=== PATIENT | male | born 1990 | race African-American/Black ===

== ENCOUNTER 2020-12-11 14:20 | Inpatient (IN) | payer OTHER ==
[2020-12-11 15:39] VITALS: BMI 23.2
[2020-12-11] MEDS ORDERED: chlordiazePOXIDE HCL 25 MG CAPSULE PO PRN (17:49)
[2020-12-11] MEDS ORDERED: MAGNESIUM HYDROX 2400MG/30ML ORAL SUSPENSION 30 ML CUP PO PRN (17:49)
[2020-12-11] MEDS ORDERED: BISMUTH SUBSALICYLATE 524 MG/30 ML UD PO PRN (17:49)
[2020-12-11] MEDS ORDERED: METHOCARBAMOL 500 MG TABLET PO PRN (17:49)
[2020-12-11] MEDS ORDERED: ONDANSETRON *ODT* 4 MG TABLET SL PRN (17:49)
[2020-12-11] MEDS ORDERED: METHADONE HCL 10 MG TABLET (FOR DETOX USE ONLY) PO ONE (17:49)
[2020-12-11] MEDS ORDERED: NICOTINE POLACRILEX 2 MG GUM BUC PRN (17:49)
[2020-12-11] MEDS ORDERED: hydrOXYzine PAMOATE 25 MG CAPSULE (FP) PO PRN (17:49)
[2020-12-11] MEDS ORDERED: ACETAMINOPHEN 325 MG TABLET (FP) PO PRN ×2 (17:49)
[2020-12-11] MEDS ORDERED: IBUPROFEN 400 MG TABLET (FP) PO PRN (17:49)
[2020-12-11] MEDS ORDERED: cloNIDine HCL 0.1 MG TABLET PO PRN (17:49)
[2020-12-11] MEDS ORDERED: MENTHOL/PHENOL 1 EACH UD MM PRN (17:49)
[2020-12-11] MEDS ORDERED: MAG HYDROX/AL HYDROX/SIMETH 30 ML UNIT-DOSE CUP PO PRN (17:49)
[2020-12-11] MEDS ORDERED: MAGNESIUM CITRATE 300 ML BOTTLE PO PRN (17:49)
[2020-12-11] MEDS: chlordiazePOXIDE HCL 25 MG CAPSULE PO SCH ×2 (20:12→22:40)
[2020-12-11] MEDS: THIAMINE HCL 100 MG TABLET (FP) PO SCH (22:39)
[2020-12-11] MEDS: MELATONIN 5 MG TABLETS PO SCH (22:41)
[2020-12-12] MEDS: chlordiazePOXIDE HCL 25 MG CAPSULE PO SCH ×4 (05:55→23:53)
[2020-12-12] MEDS ORDERED: METHADONE (DETOX) 20 MG, METHADONE (DETOX) 5 MG PO ONE (10:00)
[2020-12-12] MEDS ORDERED: METHADONE HCL 5 MG TABLET (FOR DETOX USE ONLY) ONE (10:02)
[2020-12-12] MEDS ORDERED: METHADONE HCL 10 MG TABLET (FOR DETOX USE ONLY) ONE (10:03)
[2020-12-12] MEDS: PRENATAL VITAMINS W/ FOLIC ACID TABLET (FP) PO SCH (10:29)
[2020-12-12] MEDS: NICOTINE 14 MG/24 HOURS TOPICAL PATCH TD SCH (10:33)
[2020-12-12 10:47] LABS: HEMATOCRIT 42.8 % (35.4-49); MCH 26.1 pg (25.7-33.7); MCHC 32.8 g/dl (32.0-35.9); MEAN CELL VOLUME 79.7 fl (80-96); MEAN PLT VOLUME 8.1 fl (7.5-11.1); PLATELET COUNT 212 K/MM3 (134-434); RBC 5.37 M/mm3 (4.00-5.60); RDW 12.6 % (11.9-15.9); WHITE BLOOD COUNT 6.7 K/mm3 (4.0-10.0)
[2020-12-12 10:57] LABS: POTASSIUM 4.3 mmol/L (3.5-5.1)
[2020-12-12 11:07] LABS: ALBUMIN 3.4 g/dl (3.4-5.0); BLOOD UREA NITROGEN 13.1 mg/dL (7-18)
[2020-12-12 11:10] LABS: CREATININE 1.3 mg/dL (0.55-1.3)
[2020-12-12 11:12] LABS: BILIRUBIN,TOTAL 0.8 mg/dL (0.2-1); TOT PROT 8.1 g/dl (6.4-8.2)
[2020-12-12 11:14] LABS: CALCIUM 9.4 mg/dL (8.5-10.1)
[2020-12-12] MEDS: THIAMINE HCL 100 MG TABLET (FP) PO SCH (23:53)
[2020-12-12] MEDS: MELATONIN 5 MG TABLETS PO SCH (23:53)
[2020-12-13] MEDS: chlordiazePOXIDE HCL 25 MG CAPSULE PO SCH ×5 (05:30→22:08)
[2020-12-13] MEDS ORDERED: METHADONE HCL 10 MG TABLET (FOR DETOX USE ONLY) PO ONE (10:00)
[2020-12-13] MEDS: PRENATAL VITAMINS W/ FOLIC ACID TABLET (FP) PO SCH (10:08)
[2020-12-13] MEDS: NICOTINE 14 MG/24 HOURS TOPICAL PATCH TD SCH (10:10)
[2020-12-13] MEDS: THIAMINE HCL 100 MG TABLET (FP) PO SCH (22:07)
[2020-12-13] MEDS: MELATONIN 5 MG TABLETS PO SCH (22:07)
[2020-12-14] MEDS ORDERED: chlordiazePOXIDE HCL 10 MG CAPSULE PO PRN
[2020-12-14] MEDS: chlordiazePOXIDE HCL 10 MG CAPSULE PO SCH ×4 (06:18→22:20)
[2020-12-14] MEDS ORDERED: METHADONE HCL 10 MG TABLET (FOR DETOX USE ONLY) ONE (08:49)
[2020-12-14] MEDS ORDERED: METHADONE HCL 5 MG TABLET (FOR DETOX USE ONLY) ONE (08:49)
[2020-12-14] MEDS ORDERED: METHADONE (DETOX) 10 MG, METHADONE (DETOX) 5 MG PO ONE (10:00)
[2020-12-14] MEDS: NICOTINE 14 MG/24 HOURS TOPICAL PATCH TD SCH (10:18)
[2020-12-14] MEDS: PRENATAL VITAMINS W/ FOLIC ACID TABLET (FP) PO SCH (10:19)
[2020-12-14 21:58] VITALS: PULSE 69
[2020-12-14] MEDS: THIAMINE HCL 100 MG TABLET (FP) PO SCH (22:20)
[2020-12-14] MEDS: MELATONIN 5 MG TABLETS PO SCH (22:20)
[2020-12-15] MEDS ORDERED: chlordiazePOXIDE HCL 10 MG CAPSULE PO SCH (05:00)
[2020-12-15 07:19] VITALS: BP 107/70; TEMP 97.1
[2020-12-15] MEDS ORDERED: METHADONE HCL 10 MG TABLET (FOR DETOX USE ONLY) PO ONE (10:00)
[2020-12-16] MEDS ORDERED: chlordiazePOXIDE HCL 10 MG CAPSULE PO ONE (05:00)
[2020-12-16] MEDS ORDERED: METHADONE HCL 5 MG TABLET (FOR DETOX USE ONLY) PO ONE (06:00)
== END 2020-12-15 09:30 | disposition home or self-care (01) | DRG 773 ==
LOC: YASAS 14:20 → Y6N 19:11
PROVIDERS: ADMIT Allergy & Immunology; ATTEND Allergy & Immunology
PROC: HZ2ZZZZ Detoxification Services for Substance Abuse Treatment (ICD-10-PCS; principal; 2020-12-11)
DX: F11.23 Opioid dependence with withdrawal (principal); F10.230 Alcohol dependence with withdrawal, uncomplicated; F17.210 Nicotine dependence, cigarettes, uncomplicated; Z56.0 Unemployment, unspecified
CPT/HCPCS: 36415; 80053; 85027; 86780; 93005; 93010; C9803; J0735; U0003

== ENCOUNTER 2021-05-09 18:10 | Inpatient (IN) | payer OTHER ==
[2021-05-09 18:46] VITALS: BMI 22.4
[2021-05-09] MEDS ORDERED: MENTHOL/PHENOL 1 EACH UD MM PRN (19:24)
[2021-05-09] MEDS ORDERED: ONDANSETRON *ODT* 4 MG TABLET SL PRN (19:24)
[2021-05-09] MEDS ORDERED: MAGNESIUM CITRATE 300 ML BOTTLE PO PRN (19:24)
[2021-05-09] MEDS ORDERED: hydrOXYzine PAMOATE 25 MG CAPSULE (FP) PO PRN (19:24)
[2021-05-09] MEDS ORDERED: METHOCARBAMOL 500 MG TABLET PO PRN (19:24)
[2021-05-09] MEDS ORDERED: BISMUTH SUBSALICYLATE 524 MG/30 ML PO PRN (19:24)
[2021-05-09] MEDS ORDERED: MAGNESIUM HYDROX 2400MG/30ML ORAL SUSPENSION 30 ML CUP PO PRN (19:24)
[2021-05-09] MEDS ORDERED: MAG HYDROX/AL HYDROX/SIMETH 30 ML UNIT-DOSE CUP PO PRN (19:24)
[2021-05-09] MEDS ORDERED: IBUPROFEN 400 MG TABLET (FP) PO PRN (19:24)
[2021-05-09] MEDS ORDERED: ACETAMINOPHEN 325 MG TABLET (FP) PO PRN ×2 (19:24)
[2021-05-09] MEDS ORDERED: cloNIDine HCL 0.1 MG TABLET PO PRN (19:28)
[2021-05-09] MEDS ORDERED: methaDONE HCL 10 MG TABLET (FOR DETOX USE ONLY) PO ONE (23:00)
[2021-05-09] MEDS: BACITRACIN 0.9 GM PACKET TP SCH (23:48)
[2021-05-09] MEDS: MELATONIN 5 MG TABLETS PO SCH (23:50)
[2021-05-09] MEDS: THIAMINE HCL 100 MG TABLET (FP) PO SCH (23:50)
[2021-05-10 10:08] LABS: HEMATOCRIT 39.2 % (35.4-49); HEMOGLOBIN 12.9 GM/dL (11.7-16.9); MCH 25.7 pg (25.7-33.7); MCHC 32.9 g/dl (32.0-35.9); MEAN CELL VOLUME 78.3 fl (80-96); MEAN PLT VOLUME 8.3 fl (7.5-11.1); PLATELET COUNT 201 10^3/uL (134-434); RDW 13.8 % (11.9-15.9); WHITE BLOOD COUNT 5.6 K/mm3 (4.0-10.0)
[2021-05-10 10:23] LABS: CALCIUM 8.3 mg/dL (8.5-10.1)
[2021-05-10 10:24] LABS: ALBUMIN 2.7 g/dl (3.4-5.0); BLOOD UREA NITROGEN 11.4 mg/dL (7-18)
[2021-05-10] MEDS ORDERED: methaDONE HCL 10 MG TABLET (FOR DETOX USE ONLY) ONE (10:25)
[2021-05-10 10:27] LABS: CREATININE 1.1 mg/dL (0.55-1.3)
[2021-05-10] MEDS: BACITRACIN 0.9 GM PACKET TP SCH ×2 (10:27→23:39)
[2021-05-10] MEDS: PRENATAL VITAMINS W/ FOLIC ACID TABLET (FP) PO SCH (10:27)
[2021-05-10 10:28] LABS: BILIRUBIN,TOTAL 0.5 mg/dL (0.2-1); TOT PROT 6.4 g/dl (6.4-8.2)
[2021-05-10] MEDS ORDERED: NALOXONE (NARCAN) HCL 4 MG/0.1 ML SPRAY NS SCH (11:30)
[2021-05-10] MEDS ORDERED: NALOXONE (NARCAN) HCL 4 MG/0.1 ML SPRAY NS PRN (12:20)
[2021-05-10] MEDS: MELATONIN 5 MG TABLETS PO SCH (23:39)
[2021-05-10] MEDS: THIAMINE HCL 100 MG TABLET (FP) PO SCH (23:39)
[2021-05-11 09:45] VITALS: BP 129/79; PULSE 71; TEMP 96.9
[2021-05-11] MEDS ORDERED: methaDONE HCL 10 MG TABLET (FOR DETOX USE ONLY) PO ONE (10:00)
[2021-05-11] MEDS: PRENATAL VITAMINS W/ FOLIC ACID TABLET (FP) PO SCH (11:59)
[2021-05-11] MEDS: BACITRACIN 0.9 GM PACKET TP SCH (11:59)
[2021-05-13] MEDS ORDERED: methaDONE HCL 10 MG TABLET (FOR DETOX USE ONLY) PO ONE (10:00)
== END 2021-05-11 10:03 | disposition left against medical advice (07) | DRG 770 ==
LOC: YASAS 18:10 → Y3N 19:24
PROVIDERS: ADMIT Allergy & Immunology; ATTEND Allergy & Immunology
PROC: HZ2ZZZZ Detoxification Services for Substance Abuse Treatment (ICD-10-PCS; principal; 2021-05-09)
DX: F11.23 Opioid dependence with withdrawal (principal); F17.210 Nicotine dependence, cigarettes, uncomplicated
CPT/HCPCS: 36415; 80053; 85027; 86780; C9803; U0003; U0005

== ENCOUNTER 2021-08-18 15:37 | Inpatient (IN) | payer OTHER ==
[2021-08-18 18:29] VITALS: BMI 22.6
[2021-08-18] MEDS ORDERED: MAGNESIUM HYDROX 2400MG/30ML ORAL SUSPENSION 30 ML CUP PO PRN (19:50)
[2021-08-18] MEDS ORDERED: P-EPHED 60MG/TRIPROLIDI 2.5MG TABLET PO PRN (19:50)
[2021-08-18] MEDS ORDERED: MAGNESIUM CITRATE 300 ML BOTTLE PO PRN (19:50)
[2021-08-18] MEDS ORDERED: NICOTINE POLACRILEX 2 MG GUM BC PRN (19:50)
[2021-08-18] MEDS ORDERED: ACETAMINOPHEN 325 MG TABLET (FP) PO PRN (19:50)
[2021-08-18] MEDS ORDERED: guaiFENesin 200 MG/10 ML 10 ML UNIT-DOSE CUPS PO PRN (19:50)
[2021-08-18] MEDS ORDERED: LOPERAMIDE HCL 2 MG CAPSULE PO PRN (19:50)
[2021-08-18] MEDS ORDERED: MAG HYDROX/AL HYDROX/SIMETH 30 ML UNIT-DOSE CUP PO PRN (19:50)
[2021-08-18] MEDS ORDERED: IBUPROFEN 400 MG TABLET (FP) PO PRN (19:50)
[2021-08-18] MEDS: THIAMINE HCL 100 MG TABLET (FP) PO SCH (23:08)
[2021-08-18] MEDS: MELATONIN 5 MG TABLETS PO SCH (23:08)
[2021-08-19] MEDS ORDERED: methaDONE HCL 10 MG TABLET ONE (05:54)
[2021-08-19] MEDS ORDERED: methaDONE HCL 40 MG DISPERSABLE TABLET ONE (05:54)
[2021-08-19] MEDS ORDERED: methaDONE HCL 10 MG TABLET PO ONE (06:00)
[2021-08-19] MEDS ORDERED: methaDONE 40 MG, methaDONE 20 MG PO ONE (06:00)
[2021-08-19] MEDS: NICOTINE 14 MG/24 HOURS TOPICAL PATCH TD SCH (10:32)
[2021-08-19] MEDS: PRENATAL VITAMINS W/ FOLIC ACID TABLET (FP) PO SCH (10:32)
[2021-08-19 12:34] LABS: HEMOGLOBIN 12.2 GM/dL (11.7-16.9); MCH 25.4 pg (25.7-33.7); MEAN CELL VOLUME 79.4 fl (80-96); MEAN PLT VOLUME 7.6 fl (7.5-11.1); PLATELET COUNT 243 10^3/uL (134-434); RBC 4.78 M/mm3 (4.00-5.60); WHITE BLOOD COUNT 4.7 K/mm3 (4.0-10.0)
[2021-08-19 12:46] LABS: ALBUMIN 2.6 g/dl (3.4-5.0); BLOOD UREA NITROGEN 11.4 mg/dL (7-18)
[2021-08-19 12:51] LABS: TOT PROT 7.1 g/dl (6.4-8.2)
[2021-08-19 12:52] LABS: BILIRUBIN,TOTAL 0.2 mg/dL (0.2-1)
[2021-08-19] MEDS: MELATONIN 5 MG TABLETS PO SCH (21:40)
[2021-08-19] MEDS: THIAMINE HCL 100 MG TABLET (FP) PO SCH (21:40)
[2021-08-20] MEDS ORDERED: methaDONE HCL 10 MG TABLET ONE (05:53)
[2021-08-20] MEDS ORDERED: methaDONE HCL 40 MG DISPERSABLE TABLET ONE (05:53)
[2021-08-20] MEDS ORDERED: methaDONE HCL 10 MG TABLET PO SCH (06:00)
[2021-08-20] MEDS: methaDONE 40 MG, methaDONE 20 MG PO SCH (06:35)
[2021-08-20] MEDS: NICOTINE 10 MG CARTRIDGE (INHALER) IH PRN ×2 (07:26→17:27)
[2021-08-20] MEDS: PRENATAL VITAMINS W/ FOLIC ACID TABLET (FP) PO SCH (10:24)
[2021-08-20] MEDS: NICOTINE 14 MG/24 HOURS TOPICAL PATCH TD SCH (10:24)
[2021-08-20 19:52] LABS: PH,URINE 7.5 (5.0-8.0); URINE APPEARANCE CLOUDY; URINE BILIRUBIN NEGATIVE (NEGATIVE); URINE COLOR YELLOW; URINE GLUCOSE (UA) NEGATIVE (NEGATIVE); URINE KETONE NEGATIVE (NEGATIVE); URINE LEUK ESTERASE NEGATIVE (NEGATIVE); URINE NITRITE NEGATIVE (NEGATIVE); URINE PROTEIN NEGATIVE (NEGATIVE)
[2021-08-20] MEDS: THIAMINE HCL 100 MG TABLET (FP) PO SCH (21:35)
[2021-08-20] MEDS: MELATONIN 5 MG TABLETS PO SCH (21:35)
[2021-08-21] MEDS ORDERED: methaDONE HCL 10 MG TABLET ONE (03:12)
[2021-08-21] MEDS ORDERED: methaDONE HCL 40 MG DISPERSABLE TABLET ONE (03:12)
[2021-08-21] MEDS: methaDONE 40 MG, methaDONE 20 MG PO SCH (06:14)
[2021-08-21] MEDS: NICOTINE 10 MG CARTRIDGE (INHALER) IH PRN ×2 (06:49→18:11)
[2021-08-21] MEDS: PRENATAL VITAMINS W/ FOLIC ACID TABLET (FP) PO SCH (10:55)
[2021-08-21] MEDS: NICOTINE 14 MG/24 HOURS TOPICAL PATCH TD SCH (10:55)
[2021-08-21] MEDS: THIAMINE HCL 100 MG TABLET (FP) PO SCH (22:13)
[2021-08-21] MEDS: MELATONIN 5 MG TABLETS PO SCH (22:13)
[2021-08-22] MEDS ORDERED: methaDONE HCL 40 MG DISPERSABLE TABLET ONE (02:51)
[2021-08-22] MEDS ORDERED: methaDONE HCL 10 MG TABLET ONE (02:52)
[2021-08-22] MEDS: methaDONE 40 MG, methaDONE 20 MG PO SCH (06:34)
[2021-08-22] MEDS: NICOTINE 10 MG CARTRIDGE (INHALER) IH PRN ×2 (06:36→19:40)
[2021-08-22] MEDS: PRENATAL VITAMINS W/ FOLIC ACID TABLET (FP) PO SCH (11:27)
[2021-08-22] MEDS: NICOTINE 14 MG/24 HOURS TOPICAL PATCH TD SCH (11:27)
[2021-08-22] MEDS: MELATONIN 5 MG TABLETS PO SCH (22:51)
[2021-08-22] MEDS: THIAMINE HCL 100 MG TABLET (FP) PO SCH (22:51)
[2021-08-23] MEDS ORDERED: methaDONE HCL 40 MG DISPERSABLE TABLET ONE (04:06)
[2021-08-23] MEDS ORDERED: methaDONE HCL 10 MG TABLET ONE (04:07)
[2021-08-23] MEDS: methaDONE 40 MG, methaDONE 20 MG PO SCH (07:19)
[2021-08-23] MEDS: NICOTINE 10 MG CARTRIDGE (INHALER) IH PRN ×2 (07:21→18:36)
[2021-08-23] MEDS: PRENATAL VITAMINS W/ FOLIC ACID TABLET (FP) PO SCH (11:09)
[2021-08-23] MEDS: NICOTINE 14 MG/24 HOURS TOPICAL PATCH TD SCH (11:09)
[2021-08-23] MEDS: MELATONIN 5 MG TABLETS PO SCH (21:32)
[2021-08-23] MEDS: THIAMINE HCL 100 MG TABLET (FP) PO SCH (21:32)
[2021-08-24] MEDS ORDERED: methaDONE HCL 40 MG DISPERSABLE TABLET ONE (03:18)
[2021-08-24] MEDS ORDERED: methaDONE HCL 10 MG TABLET ONE (03:18)
[2021-08-24] MEDS: methaDONE 40 MG, methaDONE 20 MG PO SCH (05:52)
[2021-08-24] MEDS: PRENATAL VITAMINS W/ FOLIC ACID TABLET (FP) PO SCH (09:58)
[2021-08-24] MEDS: NICOTINE 10 MG CARTRIDGE (INHALER) IH PRN (09:58)
[2021-08-24] MEDS: NICOTINE 14 MG/24 HOURS TOPICAL PATCH TD SCH (10:37)
[2021-08-24] MEDS: BACITRACIN 0.9 GM PACKET TP SCH ×2 (11:48→21:51)
[2021-08-24] MEDS: MELATONIN 5 MG TABLETS PO SCH (21:51)
[2021-08-24] MEDS: THIAMINE HCL 100 MG TABLET (FP) PO SCH (21:51)
[2021-08-25] MEDS ORDERED: methaDONE HCL 40 MG DISPERSABLE TABLET ONE (02:58)
[2021-08-25] MEDS ORDERED: methaDONE HCL 10 MG TABLET ONE (02:58)
[2021-08-25] MEDS: methaDONE 40 MG, methaDONE 20 MG PO SCH (06:33)
[2021-08-25] MEDS: NICOTINE 10 MG CARTRIDGE (INHALER) IH PRN (08:40)
[2021-08-25] MEDS: NICOTINE 14 MG/24 HOURS TOPICAL PATCH TD SCH (11:07)
[2021-08-25] MEDS: PRENATAL VITAMINS W/ FOLIC ACID TABLET (FP) PO SCH (11:07)
[2021-08-25] MEDS: BACITRACIN 0.9 GM PACKET TP SCH ×2 (11:07→22:48)
[2021-08-25] MEDS: THIAMINE HCL 100 MG TABLET (FP) PO SCH (22:48)
[2021-08-25] MEDS: MELATONIN 5 MG TABLETS PO SCH (22:48)
[2021-08-26] MEDS ORDERED: methaDONE HCL 10 MG TABLET ONE (03:48)
[2021-08-26] MEDS ORDERED: methaDONE HCL 40 MG DISPERSABLE TABLET ONE (03:48)
[2021-08-26] MEDS: methaDONE 40 MG, methaDONE 20 MG PO SCH (06:29)
[2021-08-26] MEDS: NICOTINE 10 MG CARTRIDGE (INHALER) IH PRN ×2 (07:04→21:20)
[2021-08-26] MEDS: PRENATAL VITAMINS W/ FOLIC ACID TABLET (FP) PO SCH (10:28)
[2021-08-26] MEDS: NICOTINE 14 MG/24 HOURS TOPICAL PATCH TD SCH (10:28)
[2021-08-26] MEDS: BACITRACIN 0.9 GM PACKET TP SCH ×2 (10:28→21:21)
[2021-08-26] MEDS: MELATONIN 5 MG TABLETS PO SCH (21:20)
[2021-08-26] MEDS: THIAMINE HCL 100 MG TABLET (FP) PO SCH (21:21)
[2021-08-27] MEDS ORDERED: methaDONE HCL 40 MG DISPERSABLE TABLET ONE (03:20)
[2021-08-27] MEDS ORDERED: methaDONE HCL 10 MG TABLET ONE (03:21)
[2021-08-27] MEDS ORDERED: methaDONE HCL 10 MG TABLET PO SCH (06:00)
[2021-08-27] MEDS: methaDONE 40 MG, methaDONE 20 MG PO SCH (06:45)
[2021-08-27] MEDS: NICOTINE 10 MG CARTRIDGE (INHALER) IH PRN ×2 (06:45→17:22)
[2021-08-27] MEDS: NICOTINE 14 MG/24 HOURS TOPICAL PATCH TD SCH (10:40)
[2021-08-27] MEDS: PRENATAL VITAMINS W/ FOLIC ACID TABLET (FP) PO SCH (10:40)
[2021-08-27] MEDS: BACITRACIN 0.9 GM PACKET TP SCH ×2 (10:40→21:48)
[2021-08-27] MEDS: MELATONIN 5 MG TABLETS PO SCH (21:48)
[2021-08-27] MEDS: THIAMINE HCL 100 MG TABLET (FP) PO SCH (21:49)
[2021-08-28] MEDS ORDERED: methaDONE HCL 40 MG DISPERSABLE TABLET ONE (03:03)
[2021-08-28] MEDS ORDERED: methaDONE HCL 10 MG TABLET ONE (03:03)
[2021-08-28] MEDS: methaDONE 40 MG, methaDONE 20 MG PO SCH (06:43)
[2021-08-28] MEDS: NICOTINE 10 MG CARTRIDGE (INHALER) IH PRN ×2 (06:44→18:25)
[2021-08-28] MEDS: BACITRACIN 0.9 GM PACKET TP SCH ×2 (10:40→21:54)
[2021-08-28] MEDS: NICOTINE 14 MG/24 HOURS TOPICAL PATCH TD SCH (10:40)
[2021-08-28] MEDS: PRENATAL VITAMINS W/ FOLIC ACID TABLET (FP) PO SCH (10:40)
[2021-08-28] MEDS: THIAMINE HCL 100 MG TABLET (FP) PO SCH (21:54)
[2021-08-28] MEDS: MELATONIN 5 MG TABLETS PO SCH (21:54)
[2021-08-29] MEDS ORDERED: methaDONE HCL 40 MG DISPERSABLE TABLET ONE (04:04)
[2021-08-29] MEDS ORDERED: methaDONE HCL 10 MG TABLET ONE (04:05)
[2021-08-29] MEDS: methaDONE 40 MG, methaDONE 20 MG PO SCH (06:53)
[2021-08-29] MEDS: NICOTINE 14 MG/24 HOURS TOPICAL PATCH TD SCH (10:54)
[2021-08-29] MEDS: BACITRACIN 0.9 GM PACKET TP SCH ×2 (10:54→22:01)
[2021-08-29] MEDS: PRENATAL VITAMINS W/ FOLIC ACID TABLET (FP) PO SCH (10:54)
[2021-08-29] MEDS: NICOTINE 10 MG CARTRIDGE (INHALER) IH PRN (19:01)
[2021-08-29] MEDS: MELATONIN 5 MG TABLETS PO SCH (22:01)
[2021-08-29] MEDS: THIAMINE HCL 100 MG TABLET (FP) PO SCH (22:01)
[2021-08-30] MEDS ORDERED: methaDONE HCL 10 MG TABLET ONE (03:09)
[2021-08-30] MEDS ORDERED: methaDONE HCL 40 MG DISPERSABLE TABLET ONE (03:09)
[2021-08-30] MEDS: NICOTINE 10 MG CARTRIDGE (INHALER) IH PRN ×3 (06:33→22:04)
[2021-08-30] MEDS: methaDONE 40 MG, methaDONE 20 MG PO SCH (06:33)
[2021-08-30] MEDS: NICOTINE 14 MG/24 HOURS TOPICAL PATCH TD SCH (12:22)
[2021-08-30] MEDS: PRENATAL VITAMINS W/ FOLIC ACID TABLET (FP) PO SCH (12:22)
[2021-08-30] MEDS: BACITRACIN 0.9 GM PACKET TP SCH ×2 (12:22→22:03)
[2021-08-30] MEDS: MELATONIN 5 MG TABLETS PO SCH (22:03)
[2021-08-30] MEDS: THIAMINE HCL 100 MG TABLET (FP) PO SCH (22:04)
[2021-08-31] MEDS ORDERED: methaDONE HCL 40 MG DISPERSABLE TABLET ONE (03:58)
[2021-08-31] MEDS ORDERED: methaDONE HCL 10 MG TABLET ONE (03:58)
[2021-08-31] MEDS: methaDONE 40 MG, methaDONE 20 MG PO SCH (06:25)
[2021-08-31] MEDS: NICOTINE 10 MG CARTRIDGE (INHALER) IH PRN ×3 (06:26→21:26)
[2021-08-31] MEDS: PRENATAL VITAMINS W/ FOLIC ACID TABLET (FP) PO SCH (10:27)
[2021-08-31] MEDS: NICOTINE 14 MG/24 HOURS TOPICAL PATCH TD SCH (10:27)
[2021-08-31] MEDS: BACITRACIN 0.9 GM PACKET TP SCH ×2 (10:27→21:26)
[2021-08-31] MEDS: MELATONIN 5 MG TABLETS PO SCH (21:26)
[2021-08-31] MEDS: THIAMINE HCL 100 MG TABLET (FP) PO SCH (21:26)
[2021-09-01] MEDS ORDERED: methaDONE HCL 40 MG DISPERSABLE TABLET ONE (03:13)
[2021-09-01] MEDS ORDERED: methaDONE HCL 10 MG TABLET ONE (03:14)
[2021-09-01] MEDS: methaDONE 40 MG, methaDONE 20 MG PO SCH (06:29)
[2021-09-01] MEDS: NICOTINE 10 MG CARTRIDGE (INHALER) IH PRN ×3 (06:30→17:45)
[2021-09-01 07:07] VITALS: TEMP 98.8
[2021-09-01] MEDS: BACITRACIN 0.9 GM PACKET TP SCH ×2 (10:45→23:52)
[2021-09-01] MEDS: NICOTINE 14 MG/24 HOURS TOPICAL PATCH TD SCH (10:45)
[2021-09-01] MEDS: PRENATAL VITAMINS W/ FOLIC ACID TABLET (FP) PO SCH (10:45)
[2021-09-01] MEDS: MELATONIN 5 MG TABLETS PO SCH (23:52)
[2021-09-01] MEDS: THIAMINE HCL 100 MG TABLET (FP) PO SCH (23:52)
[2021-09-02] MEDS ORDERED: methaDONE HCL 40 MG DISPERSABLE TABLET ONE (03:17)
[2021-09-02] MEDS ORDERED: methaDONE HCL 10 MG TABLET ONE (03:17)
[2021-09-02] MEDS: methaDONE 40 MG, methaDONE 20 MG PO SCH (06:13)
[2021-09-02 07:24] VITALS: BP 128/77; PULSE 74
[2021-09-02] MEDS: BACITRACIN 0.9 GM PACKET TP SCH (10:33)
[2021-09-02] MEDS: NICOTINE 14 MG/24 HOURS TOPICAL PATCH TD SCH (10:33)
[2021-09-02] MEDS: NICOTINE 10 MG CARTRIDGE (INHALER) IH PRN (10:33)
[2021-09-02] MEDS: PRENATAL VITAMINS W/ FOLIC ACID TABLET (FP) PO SCH (10:33)
== END 2021-09-02 11:10 | disposition left against medical advice (07) | DRG 770 ==
LOC: YASAS 15:37 → Y3W 20:57
PROVIDERS: ADMIT Allergy & Immunology; ATTEND Allergy & Immunology
PROC: HZ42ZZZ Group Counseling for Substance Abuse Treatment, Cognitive-Behavioral (ICD-10-PCS; principal; 2021-08-18)
DX: F11.20 Opioid dependence, uncomplicated (principal); F14.20 Cocaine dependence, uncomplicated; F17.210 Nicotine dependence, cigarettes, uncomplicated; Z56.0 Unemployment, unspecified; Z59.01 Sheltered homelessness
CPT/HCPCS: 36415; 80053; 81003; 85027; 86780; 87811; 93005; 93010; C9803; U0003; U0005